=== PATIENT | male | born 1935 | race Caucasian/White ===

== ENCOUNTER 2016-07-10 08:08 | Day surgery (SDC) | payer MEDICARE ==
[~2016-07-10 08:08] MED LIST: Acetaminophen TAB* 325 MG PO PRN; Buffered Lidocaine 1% SYRIN* 3 ML/SYR SYRINGE INTRADERM ONE
[2016-07-10] MEDS ORDERED: Midazolam* 1 MG/ML 2 ML VIAL (2 MG) ONE (10:24)
[2016-07-10 10:59] VITALS: BP 148/79
[2016-07-10] MEDS ORDERED: Acetaminophen TAB* 325 MG ONE (11:02)
--- NOTE | 2016-07-10 13:58 | OP ---
DATE OF OPERATION: 07/10/16 - [facility] DATE OF : 33 SURGEON: Tre Doan M.D. PREOPERATIVE DIAGNOSIS: Cataract, right eye. POSTOPERATIVE DIAGNOSIS: Cataract, right eye. OPERATIVE PROCEDURE: Phacoemulsification right eye with IOL. DESCRIPTION OF PROCEDURE: The patient was brought to the operating room after being given 1/2% Alcaine with epinephrine drops in the preoperative area. The eye was prepped and draped in the usual sterile fashion. Sterile drape and eyelid speculum were placed. Again, topical 1/2% Alcaine with epinephrine was given. A paracentesis incision was made at the 9 o'clock position with the No.75 blade. Clear cornea incision 2.2 x 2.2-mm was created at the 9 o'clock position starting at the anterior limbus using the 2.2-mm keratome. The anterior chamber was irrigated with 0.4 mL of 1% non-preservative intracameral lidocaine and filled with DisCoVisc. A capsulorrhexis was completed using the cystotome and the Utrata forceps. Hydrodissection was performed with balanced salt solution. The lens nucleus was removed with the Phacoemulsification handpiece without incident. Cortex was removed with the irrigation-aspiration handpiece. The capsular bag was re-inflated using DisCoVisc and an [id number] 23- diopter implant was inserted with the shooter. The pupil was very small. So, I used the Malyugin ring to dilate the pupil prior to capsulorrhexis and removed after insertion of the lens. Indication for complex cataract surgery. Iris abnormalities requiring pupil dilation device. The irrigation-aspiration handpiece was used to remove all residual DisCoVisc. The eye was refilled with balanced salt solution and the wound checked and found to be watertight. Topical Maxitrol drops were given. [id number]/[facility] #: [id number] MTDD
[2016-07-10] MEDS ORDERED: Phenylephrine 2.5% OPTH.SOL* 2 ML BTL ONE (14:11)
[2016-07-10] MEDS ORDERED: Lidocaine 1% MPF* 2 ML VIAL ONE (14:11)
[2016-07-10] MEDS ORDERED: Cyclopentolate 1% OPTH.SOL* 2 ML BTL ONE (14:11)
[2016-07-10] MEDS ORDERED: Lidocaine 2% EPI 1:200000 MPF* 20 ML VIAL ONE (14:11)
[2016-07-10] MEDS ORDERED: acetaZOLAMIDE TAB* 250 MG ONE (14:11)
[2016-07-10] MEDS ORDERED: Neomycin/Polymy/Dex OPTH.SUSP* MAXITROL 0.1% 5 ML ONE (14:11)
[2016-07-10] MEDS ORDERED: Flurbiprofen 0.03% OPTH.SOL* 2.5 ML BTL ONE (14:11)
[2016-07-10] MEDS ORDERED: Povidone Iodine 5% OPTH* 30 ML BTL ONE (14:12)
[2016-07-10] MEDS ORDERED: Proparacaine 0.5% OPHTH.SOL* 15 ML BTL ONE (14:12)
== END 2016-07-10 11:12 | disposition home or self-care (01) ==
LOC: OREAST 08:08
PROVIDERS: ATTEND Specialist
DX: H25.11 Age-related nuclear cataract, right eye (principal); Q13.2 Other congenital malformations of iris; H43.813 Vitreous degeneration, bilateral; H50.011 Monocular esotropia, right eye
CPT/HCPCS: A9270-GY; J2250; V2632

== ENCOUNTER 2016-07-17 06:31 | Day surgery (SDC) | payer MEDICARE ==
[~2016-07-17 06:31] MED LIST changes: +Buffered Lidocaine 1% SYR 3ML* 3 ML/SYR SYRINGE INTRADERM ONE; -Buffered Lidocaine 1% SYRIN* 3 ML/SYR SYRINGE INTRADERM ONE
[2016-07-17] MEDS ORDERED: Midazolam* 1 MG/ML 2 ML VIAL (2 MG) ONE (07:55)
[2016-07-17] MEDS ORDERED: Flurbiprofen 0.03% OPTH.SOL* 2.5 ML BTL ONE (08:08)
[2016-07-17] MEDS ORDERED: Cyclopentolate 1% OPTH.SOL* 2 ML BTL ONE (08:08)
[2016-07-17] MEDS ORDERED: Povidone Iodine 5% OPTH* 30 ML BTL ONE (08:08)
[2016-07-17] MEDS ORDERED: Lidocaine 2% EPI 1:200000 MPF* 20 ML VIAL ONE (08:08)
[2016-07-17] MEDS ORDERED: Proparacaine 0.5% OPHTH.SOL* 15 ML BTL ONE (08:08)
[2016-07-17] MEDS ORDERED: acetaZOLAMIDE TAB* 250 MG ONE (08:08)
[2016-07-17] MEDS ORDERED: Lidocaine 1% MPF* 2 ML VIAL ONE (08:08)
[2016-07-17] MEDS ORDERED: Phenylephrine 2.5% OPTH.SOL* 2 ML BTL ONE (08:08)
[2016-07-17] MEDS ORDERED: Neomycin/Polymy/Dex OPTH.SUSP* MAXITROL 0.1% 5 ML ONE (08:08)
[2016-07-17 08:44] VITALS: BP 132/82
--- NOTE | 2016-07-17 11:30 | OP ---
OPERATIVE NOTE: DATE OF OPERATION: 07/17/16 DATE OF : 33 SURGEON: Tre Doan MD PREOPERATIVE DIAGNOSIS: Cataract, left eye. POSTOPERATIVE DIAGNOSIS: Cataract, left eye. OPERATIVE PROCEDURE: Phacoemulsification, left eye with IOL. PROCEDURE: The patient was brought to the operating room after being given 1/2% Alcaine with epinep hrine drops in the preoperative area. The eye was prepped and draped in the usual sterile fashion. Sterile drape and eyelid speculum were placed. Again, topical 1/2% Alcaine with epinephrine was gi thi. A paracentesis incision was made at the 3 o'clock position with the No.75 blade. Clear cornea incision 2.2 x 2.2-mm was created at the 6 o'clock position starting at the anterior limbus using t he 2.2-mm keratome. The anterior chamber was irrigated with 0.4 mL of 1% non-preservative intracame ral lidocaine and filled with DisCoVisc. A capsulorrhexis was completed using the cystotome and the Utrata forceps. Hydrodissection was performed with balanced salt solution. The lens nucleus was re moved with the Phacoemulsification handpiece without incident. Cortex was removed with the irrigati on-aspiration handpiece. The capsular bag was re-inflated using DisCoVisc and an [id number] 22-diopter implant was inserted with the shooter. The pupil was only 3 mm prior to the surgery. A Malyugin rin g was used to dilate the pupil prior to capsulorrhexis and removed after insertion of the lens. The irrigation-aspiration handpiece was used to remove all residual DisCoVisc. The eye was refilled wi th balanced salt solution and the wound checked and found to be watertight. Topical Maxitrol drops were given. [id number]/[facility] #: [id number]
== END 2016-07-17 08:41 | disposition home or self-care (01) ==
LOC: OREAST 06:31
PROVIDERS: ATTEND Specialist
DX: H25.12 Age-related nuclear cataract, left eye (principal); H43.813 Vitreous degeneration, bilateral; H50.011 Monocular esotropia, right eye
CPT/HCPCS: A9270-GY; J2250; V2632